=== PATIENT | male | born 1970 | race Caucasian/White ===

== ENCOUNTER → 2020-10-01 | Outpatient (CLI) | payer OTHER ==
[~2020-10-01] MED LIST: ELIQUIS 2.5 MG2.5 MG PO; HYDROCODON-ACE1 EAC4 PO; IBUPROFEN800 MG PO; NORCO 7.5-3251 EACH PO; OXYCODONE-ACET1 EACH PO; TYLENOL325 MG PO
[2020-10-01 13:21] LABS: HEMOGLOBIN 13.3 gm/dl (14.0-17.5); RED BLOOD COUNT 4.43 M/UL (4.20-5.50); WHITE BLOOD COUNT 6.9 K/UL (4.5-11.0)
[2020-10-01 13:36] LABS: BUN/CREATININE RATIO 18 (0-10)
== END ==
LOC: OPSV2 12:30 → EDSTATUS 12:30 → OPSV2 12:39
PROVIDERS: Orthopaedic Surgery
DX: Z01.818 Encounter for other preprocedural examination (principal); M87.852 Other osteonecrosis, left femur; M87.851 Other osteonecrosis, right femur; R94.31 Abnormal electrocardiogram [ECG] [EKG]
CPT/HCPCS: 36415; 80048; 81001; 85025; 87081; 93005

== ENCOUNTER → 2020-10-13 | Outpatient (CLI) | payer OTHER ==
[2020-10-13 13:38] LABS: BUN/CREATININE RATIO 19 (0-10)
== END ==
LOC: LAB 12:43
PROVIDERS: Orthopaedic Surgery
DX: Z53.8 Procedure and treatment not carried out for other reasons (principal)
CPT/HCPCS: 36415; 80048; 86850; 86900; 86901

== ENCOUNTER 2020-10-14 06:37 | Inpatient (IN) | payer OTHER ==
[~2020-10-14] VITALS: Ht 182.9 cm; Wt 83.5 kg
[~2020-10-14 06:37] MED LIST changes: -ELIQUIS 2.5 MG2.5 MG PO; -HYDROCODON-ACE1 EAC4 PO; -IBUPROFEN800 MG PO; -OXYCODONE-ACET1 EACH PO; -TYLENOL325 MG PO
[2020-10-14] MEDS ORDERED: IBUPROFEN800 MG PO (07:38)
[2020-10-14] MEDS ORDERED: TYLENOL325 MG PO (07:39)
[2020-10-14] MEDS ORDERED: OXYCODONE-ACET1 EACH PO (09:02)
[2020-10-15 02:50] LABS: HEMOGLOBIN 11.9 gm/dl (14.0-17.5); RED BLOOD COUNT 3.9 M/UL (4.20-5.50); WHITE BLOOD COUNT 13.9 K/UL (4.5-11.0)
[2020-10-15 03:06] LABS: BUN/CREATININE RATIO 33 (0-10)
[2020-10-16 03:09] LABS: HEMOGLOBIN 10.1 gm/dl (14.0-17.5); WHITE BLOOD COUNT 12.4 K/UL (4.5-11.0)
[2020-10-16 03:12] LABS: RED BLOOD COUNT 3.29 M/UL (4.20-5.50)
[2020-10-16 03:29] LABS: BUN/CREATININE RATIO 25 (0-10)
[2020-10-17 03:47] LABS: HEMOGLOBIN 9.1 gm/dl (14.0-17.5); RED BLOOD COUNT 3.14 M/UL (4.20-5.50); WHITE BLOOD COUNT 12.8 K/UL (4.5-11.0)
[2020-10-17 04:01] LABS: BUN/CREATININE RATIO 22 (0-10)
[2020-10-17] MEDS ORDERED: ELIQUIS 2.5 MG2.5 MG PO (08:44)
== END 2020-10-17 14:26 | disposition home health service (06) | DRG 462 ==
LOC: M/S 06:37 → ZOBSOF 06:37 → ZEROF 14:35 → ZOBSOF 14:35 → M/S 15:20
PROVIDERS: ADMIT Orthopaedic Surgery
PROC: 0SR904A Replacement of Right Hip Joint with Ceramic on Polyethylene Synthetic Substitute, Uncemented, Open Approach (ICD-10-PCS; 2020-10-14)
PROC: 0SRB04A Replacement of Left Hip Joint with Ceramic on Polyethylene Synthetic Substitute, Uncemented, Open Approach (ICD-10-PCS; principal; 2020-10-14 08:15)
DX: M87.852 Other osteonecrosis, left femur (principal); M87.851 Other osteonecrosis, right femur; M16.0 Bilateral primary osteoarthritis of hip; M21.852 Other specified acquired deformities of left thigh; M21.851 Other specified acquired deformities of right thigh; Z87.891 Personal history of nicotine dependence; Z20.822 Contact with and (suspected) exposure to COVID-19
CPT/HCPCS: 36415; 72170; 73522; 76000; 80048; 85027; 86850; 86900; 86901; 97110-GP-CQ; 97116-GP-CQ; 97162; 97166; 97530; 97535; C1776; J0171; J0690; J1100; J1644; J1885; J2250; J2270; J2405; J2704; J2710; J2795; J3010; J3370; J7030; J7050; J7120

== ENCOUNTER 2020-11-06 10:54 | Emergency (ER) | payer OTHER ==
[~2020-11-06 10:54] MED LIST changes: +ELIQUIS 2.5 MG2.5 MG PO; +IBUPROFEN800 MG PO; +OXYCODONE-ACET1 EACH PO; +TYLENOL325 MG PO
[2020-11-06] MEDS ORDERED: HYDROCODON-ACE1 EAC4 PO (15:07)
== END 2020-11-06 15:33 | disposition home or self-care (01) ==
LOC: ER1 10:54
DX: G89.18 Other acute postprocedural pain (principal); Z87.39 Personal history of other diseases of the musculoskeletal system and connective tissue; F17.200 Nicotine dependence, unspecified, uncomplicated
CPT/HCPCS: 72170; 99283